=== PATIENT | female | born 1945 | race Hispanic/Latino ===

== ENCOUNTER 2018-03-14 14:23 | Outpatient (CLI) | payer MEDICARE ==
--- NOTE | 2018-03-14 17:23 | XRay Report ---
FINAL REPORT EXAM: XR KNEE 4+V LT HISTORY: LEFT KNEE PAIN TECHNIQUE: Four views of the left knee PRIORS: None. FINDINGS: No fracture is identified. No dislocation seen. No evidence of joint effusion. Patella demonstrates normal positioning. No acute bony abnormality identified. IMPRESSION: Negative knee series
== END 2018-03-14 14:24 | disposition home or self-care (01) ==
LOC: SPVIMAG 14:23
PROVIDERS: ATTEND Orthopaedic Surgery Sports Medicine
DX: M25.562 Pain in left knee (principal)